=== PATIENT | female | born 1955 | race Caucasian/White ===

== ENCOUNTER 2018-01-09 16:19 | Inpatient (IN) | payer SELFPAY ==
[~2018-01-09] VITALS: Ht 151.1 cm; Wt 63.6 kg
[2018-01-09 17:03] LABS: CALCIUM 9.2 mg/dL (8.5-10.1); CARBON DIOXIDE 23.5 mmol/L (21-32); CHLORIDE SERUM 104 mmol/L (98-107); CREATININE SERUM 0.5 mg/dL (0.6-1.0); GFR1 > 60 mL/min; GLUCOSE SERUM 125 mg/dL (74-106); POTASSIUM SERUM 4.3 mmol/L (3.5-5.1); SODIUM SERUM 139 mmol/L (136-145)
[2018-01-09 17:09] LABS: BASOPHIL % 0.3 % (0-2); PLATELET COUNT 297 x10^3mcL (130-400); RED CELL DISTRIBUTION WIDTH 13.6 % (11.5-14.5)
[2018-01-09] MEDS ORDERED: NEU300 PO (18:13)
[2018-01-09] MEDS ORDERED: PROAIR HFA8.5 GM INH (18:14)
[2018-01-09] MEDS ORDERED: LIPI10 PO (18:14)
[2018-01-09] MEDS ORDERED: AMLODIPINE BES2.5 M1 PO (18:14)
[2018-01-09] MEDS ORDERED: FLOVENT DI100 MCG/A1 INH (18:15)
[2018-01-09] MEDS ORDERED: ACCOLATE20 M1 PO (18:16)
[2018-01-09] MEDS ORDERED: CITALOPRAM HYDR20 M1 PO (18:16)
[2018-01-09 18:39] LABS: CHOLESTEROL/HDL RATIO 3.2; MAGNESIUM 1.8 mg/dL (1.8-2.4); PHOSPHOROUS 1.4 mg/dL (2.5-4.9)
[2018-01-09 18:48] LABS: T3 TOTAL 1.28 ng/mL
[2018-01-09 18:52] VITALS: BP 163/76
[2018-01-09 18:55] VITALS: Ht 151.1 cm; Wt 63.6 kg
[2018-01-09 19:00] LABS: FREE T4 1.13 ng/dL (0.76-1.46); FREE THYROXINE INDEX 2.9 ug/dL (1.4-4.5); T4(THYROXINE) 8.5 ug/dL (4.7-13.3)
[2018-01-09 20:29] VITALS: BP 149/57
[2018-01-09 23:35] VITALS: BP 149/57
[2018-01-10 06:22] VITALS: BP 147/57
[2018-01-10 06:36] LABS: CALCIUM 8.4 mg/dL (8.5-10.1); CARBON DIOXIDE 27.7 mmol/L (21-32); CHLORIDE SERUM 107 mmol/L (98-107); CREATININE SERUM 0.6 mg/dL (0.6-1.0); GFR1 > 60 mL/min; GLUCOSE SERUM 96 mg/dL (74-106); MAGNESIUM 2.1 mg/dL (1.8-2.4); SODIUM SERUM 144 mmol/L (136-145)
[2018-01-10 06:50] LABS: PLATELET COUNT 272 x10^3mcL (130-400); RED CELL DISTRIBUTION WIDTH 13.8 % (11.5-14.5)
[2018-01-10 08:22] VITALS: BP 161/58
[2018-01-10 09:25] LABS: microscopic required? NO
[2018-01-10 09:43] LABS: UA SPECIFIC GRAVITY 1.025 (1.005-1.035); urine erythrocyte NEGATIVE (NEGATIVE)
[2018-01-10 09:51] LABS: AMPHETAMINE QUAL UR NONE DETECTED (See below)
[2018-01-10 12:46] VITALS: BP 156/55
[2018-01-10 16:13] VITALS: BP 148/62
[2018-01-10] MEDS ORDERED: LOV60I SC (17:39)
[2018-01-10] MEDS ORDERED: CLOPIDOGREL75 M1 PO (17:40)
[2018-01-10] MEDS ORDERED: ECO81 PO (17:40)
[2018-01-10] MEDS ORDERED: ATORVASTATIN CA40 M1 PO (17:40)
[2018-01-10] MEDS ORDERED: METOPROLOL TART25 M1 PO (17:40)
== END 2018-01-10 20:36 | disposition short-term general hospital (02) | DRG 282 ==
LOC: ED 16:19 → DU 17:29
PROVIDERS: Emergency Medicine; General Practice
DX: I21.4 Non-ST elevation (NSTEMI) myocardial infarction (principal); E78.5 Hyperlipidemia, unspecified; E83.39 Other disorders of phosphorus metabolism; I10 Essential (primary) hypertension; J45.909 Unspecified asthma, uncomplicated; F41.9 Anxiety disorder, unspecified; Z85.3 Personal history of malignant neoplasm of breast; Z92.3 Personal history of irradiation; Z88.5 Allergy status to narcotic agent; Z90.13 Acquired absence of bilateral breasts and nipples; Z82.49 Family history of ischemic heart disease and other diseases of the circulatory system; Z91.040 Latex allergy status
CPT/HCPCS: 83880; 84439; 94150; J1650; J3010; J7030; J7620; Q0092